=== PATIENT | female | born 1940 | race Caucasian/White ===

== ENCOUNTER 2023-02-23 15:09 | Emergency (ER) | payer MEDICARE, BC ==
[~2023-02-23] VITALS: Ht 165.1 cm; Wt 75.8 kg
[2023-02-23 15:23] VITALS: BP 163/80; PULSE 82; RESP 18; TEMP 98.4; O2SAT 97
[2023-02-23] MEDS ORDERED: traMADol 50MG tablet PO ONE (16:15)
[2023-02-23] MEDS ORDERED: TRAM50TA2 PO (16:37)
== END 2023-02-23 16:50 | disposition home or self-care (01) ==
LOC: ER 15:10
DX: G89.29 Other chronic pain (principal); M54.50 Low back pain, unspecified; I10 Essential (primary) hypertension; M19.90 Unspecified osteoarthritis, unspecified site; F12.90 Cannabis use, unspecified, uncomplicated; Z86.11 Personal history of tuberculosis
CPT/HCPCS: 99283